=== PATIENT | male | born 1945 | race African-American/Black ===

== ENCOUNTER 2018-11-30 17:50 | Inpatient (IN) ==
[2018-11-30] MEDS ORDERED: MORPHINE 4 MG/1 ML VIAL IM STA (18:31)
[2018-11-30] MEDS ORDERED: SODIUM CHLORIDE 0.9% 1,000 ML IV STA (18:31)
[2018-11-30] MEDS ORDERED: ONDANSETRON 4 MG/2 ML VIAL IV STA (18:31)
[2018-11-30] MEDS ORDERED: MORPHINE 4 MG/1 ML VIAL IV STA ×2 (18:54→20:39)
[2018-11-30 18:56] LABS: Basophils % 0.2 % (0.0-0.8); Hematocrit 42.4 VOL% (42.0-52.0); Hemoglobin 13.6 GM/DL (14.0-18.0); Immature Granulocytes % 0.3 %; Immature Granulocytes Absolute 0.03 #; Lymphocytes # 0.6 10*3/uL (1.4-4.0); Lymphocytes % 5.5 % (21.2-54.2); Mean Corpuscular HGB Conc 32.1 GM/DL (32-36); Monocytes % 4.4 % (1.7-12.7); Neutrophils % 89.6 % (38.7-73.9); Platelet Count 225 T/CUMM (130-400); Red Blood Count 4.99 MC/CUMM (3.8-5.5); Red Cell Distribution Width 13.2 % (9.3-17.3)
[2018-11-30 19:20] LABS: Alanine Aminotransferase 25 U/L (16-61); Albumin 3.9 G/DL (3.4-5.0); Alkaline Phosphatase 75 U/L (45-117); Amylase > 1300 U/L (25-115); Aspartate Amino Transferase 25 U/L (0-37); Blood Urea Nitrogen 16 MG/DL (7-18); Glucose 159 MG/DL (74-106); Total Protein 7.2 G/DL (6.4-8.3)
[2018-11-30 20:17] LABS: Apearance,Urine CLEAR (Clear); Bilirubin,Urine Negative (Negative); Blood, Urine Negative (Negative); Glucose,Urine (UA) 150 mg/dL (Negative); Ketones,Urine 5 mg/dL (Negative); Mucus,Urine Occasional /LPF (Occasional); Nitrite,Urine Negative (Negative); Protein,Urine Negative; RBC,Urine 2 /HPF (0-4); Urine Color Yellow (Yellow); Urine Urobilinogen < 2.0 EU/DL (0.2-1.0); WBC,Urine <1 /HPF (0-6)
[2018-11-30] MEDS ORDERED: MORPHINE 4 MG/1 ML VIAL IV PRN (21:00)
[2018-11-30] MEDS ORDERED: FAMOTIDINE 20 MG/2 ML VIAL IV SCH (21:30)
[2018-11-30] MEDS: ENOXAPARIN 40 MG/0.4 ML SYRINGE SUBCUT SCH (22:42)
[2018-11-30] MEDS: LORazepam 2 MG/1 ML VIAL IV PRN (22:43)
[2018-11-30] MEDS: SODIUM CHLORIDE 0.9% 1,000 ML IV SCH (22:43)
[2018-11-30] MEDS: HYDROmorphone 2 MG/1 ML VIAL IV PRN (22:49)
[2018-11-30] MEDS: PANTOPRAZOLE 40 MG VIAL IV SCH (22:49)
[2018-12-01] MEDS: HYDROmorphone 2 MG/1 ML VIAL IV PRN ×5 (01:52→20:37)
[2018-12-01] MEDS: ONDANSETRON 4 MG/2 ML VIAL IV PRN ×2 (03:21→07:09)
[2018-12-01] MEDS: LORazepam 2 MG/1 ML VIAL IV PRN ×3 (03:21→20:36)
[2018-12-01 05:09] LABS: Basophils % 0.1 % (0.0-0.8); Hematocrit 36.9 VOL% (42.0-52.0); Hemoglobin 11.8 GM/DL (14.0-18.0); Immature Granulocytes % 0.4 %; Immature Granulocytes Absolute 0.03 #; Lymphocytes # 0.6 10*3/uL (1.4-4.0); Lymphocytes % 7.5 % (21.2-54.2); Mean Corpuscular Volume 84.6 FL (87-102); Mean Platelet Volume 9.5 FL (9.6-12.0); Monocytes % 6.5 % (1.7-12.7); Neutrophils % 85.5 % (38.7-73.9); Platelet Count 195 T/CUMM (130-400); Red Blood Count 4.36 MC/CUMM (3.8-5.5); Red Cell Distribution Width 13.3 % (9.3-17.3); White Blood Count 7.6 T/CUMM (4-12)
[2018-12-01 06:12] LABS: Bilirubin,Total 0.6 MG/DL (0.2-1.0); Risk Ratio 2.18; Thyroid Stimulating Hormone 0.232 uIU/ml (0.358-3.74); VLDL CHOLESTEROL 9.8 MG/DL
[2018-12-01] MEDS: SODIUM CHLORIDE 0.9% 1,000 ML IV SCH ×4 (07:57→19:13)
[2018-12-01] MEDS: PANTOPRAZOLE 40 MG VIAL IV SCH ×2 (10:32→20:35)
[2018-12-01] MEDS: ENOXAPARIN 40 MG/0.4 ML SYRINGE SUBCUT SCH (20:35)
[2018-12-02] MEDS: HYDROmorphone 2 MG/1 ML VIAL IV PRN ×2 (00:29→05:09)
[2018-12-02] MEDS: LORazepam 2 MG/1 ML VIAL IV PRN ×2 (00:35→05:08)
[2018-12-02] MEDS: SODIUM CHLORIDE 0.9% 1,000 ML IV SCH ×2 (05:06→09:31)
[2018-12-02] MEDS: ONDANSETRON 4 MG/2 ML VIAL IV PRN (05:07)
[2018-12-02] MEDS: PANTOPRAZOLE 40 MG VIAL IV SCH (09:32)
[2018-12-02 11:43] VITALS: BP 144/72
[2018-12-03] MEDS ORDERED: PANTOPRAZOLE 40 MG TABLET PO SCH (09:00)
== END 2018-12-02 14:36 | disposition home or self-care (01) | DRG 440 ==
LOC: N.ED 17:50 → N.EDINP 21:00 → N.5E 21:41
PROVIDERS: ADMIT Internal Medicine; ATTEND Internal Medicine